=== PATIENT | female | born 1975 | race Asian ===

== ENCOUNTER → 2018-06-13 15:54 | Outpatient (CLI) | payer OTHER, SELFPAY ==
[2018-06-13 17:22] LABS: Free T4, Direct Thyroxine 1.14 ng/dL (0.78-2.19)
[2018-06-13 17:36] LABS: Thyroid Stimulating Hormone 1.89 uIU/mL (0.47-4.68)
== END ==
PROVIDERS: Family Provider Family Medicine; PCP Family Medicine; Visit Provider Obstetrics & Gynecology
DX: R53.83 Other fatigue (principal)
CPT/HCPCS: 36415; 84439; 84443

== ENCOUNTER → 2018-06-30 11:37 | Outpatient (CLI) | payer OTHER, SELFPAY ==
--- NOTE | 2018-06-30 11:39 | DI.MG.S_ITS ---
BILATERAL DIGITAL SCREENING MAMMOGRAM 3D/2D WITH CAD: 06/30/2018 CLINICAL: Routine screening. Baseline exam. No prior exams were available for comparison. The tissue of both breasts is heterogeneously dense. This may lower the sensitivity of mammography. Current study was also evaluated with a Computer Aided Detection (CAD) system. No significant masses, calcifications, or other findings are seen in either breast. IMPRESSION: NEGATIVE There is no mammographic evidence of malignancy. A 1 year screening mammogram is recommended. This exam was interpreted at Station ID: [id number]. NOTE: For mammograms, a report in lay terms will be sent to the patient. Approximately 15% of breast malignancies will not be visualized mammographically. In the management of a palpable breast mass, a negative mammogram must not discourage biopsy of a clinically suspicious lesion. Electronically Signed By: Briseida [email or web address]/beth:07/02/2018 16:07:35 letter sent: Normal Exam ACR BI-RADS Category 1: Negative 3341F
== END ==
PROVIDERS: Family Provider Family Medicine; PCP Family Medicine; Visit Provider Obstetrics & Gynecology
DX: Z12.31 Encounter for screening mammogram for malignant neoplasm of breast (principal)
CPT/HCPCS: 77063; 77067

== ENCOUNTER → 2019-05-01 15:42 | Outpatient (CLI) | payer OTHER, SELFPAY ==
[2019-05-02 15:34] LABS: Free T4, Direct Thyroxine 1.17 ng/dL (0.78-2.19)
[2019-05-02 15:48] LABS: Thyroid Stimulating Hormone 1.16 uIU/mL (0.47-4.68)
== END ==
PROVIDERS: Visit Provider Obstetrics & Gynecology
DX: E04.9 Nontoxic goiter, unspecified (principal)
CPT/HCPCS: 36415; 84439; 84443

== ENCOUNTER → 2021-01-07 14:10 | Outpatient (CLI) | payer BC, SELFPAY ==
[2021-01-07 16:37] LABS: Thyroid Stimulating Hormone 1.51 uIU/mL (0.47-4.68)
== END ==
PROVIDERS: Referring Provider Obstetrics & Gynecology; Visit Provider Obstetrics & Gynecology
DX: R53.83 Other fatigue (principal)
CPT/HCPCS: 36415; 84439; 84443

== ENCOUNTER 2022-12-14 21:12 | Emergency (ER) | payer BC, SELFPAY ==
[2022-12-14 21:15] VITALS: BP 128/71; PULSE 69; RESP 16; TEMP 36.2; O2SAT 100; BMI 21.4
[2022-12-14 21:49] LABS: Add Manual Diff / Slide Review NO; Basophils Absolute Auto 100 /uL (0-100); Basophils Percent Auto 1.2 % (0-2); Eosinophils Absolute Auto 500 /uL (0-450); Eosinophils Percent Auto 5.4 % (2-4); Hemoglobin 12.9 g/dL (12.0-16.0); Lymphocytes Absolute Auto 2700 /uL (1100-4500); Lymphocytes Percent Auto 32.4 % (25-40); Mean Corpuscular Hemoglobin 29.7 PG (26-34); Mean Corpuscular Volume 87.1 fL (80-100); Monocytes Absolute Auto 600 /uL (0-900); Monocytes Percent Auto 7.4 % (3-14); Neutrophils Absolute Auto 4500 /uL (1500-7000); Neutrophils Percent Auto 53.6 % (50-75); Platelet Count 260 X10^3/uL (150-400); Red Blood Cell Count 4.36 X10^6/uL (4.0-5.2); Red Cell Distribution Width 13.7 % (11.6-14.8); White Blood Cell Count 8.4 X10^3/uL (4.5-11.0)
--- NOTE | 2022-12-14 21:55 | ED.GIBLEED ---
HPI - GI Bleed General Chief complaint: GI Bleed Stated complaint: blood in stool Time Seen by Provider: 12/14/22 21:34 Source: patient Mode of arrival: Ambulatory History of Present Illness HPI Narrative: Otherwise healthy 46-year-old female who is here for evaluation of blood in her stool. She states that the event occurred just earlier today. She is also having some vaginal bleeding although she states this is abnormal as she is only [facility] through her menstrual cycle. She denies any abdominal pain except for some cramping related to the vaginal bleeding that she is having. States that it is not painful for her to have a bowel movement. She is not constipated. No diarrhea. No recent travel. No recent antibiotics. She is not had a colonoscopy in the past. Related Data Home Medications Medication Instructions Recorded Confirmed No Known Home Medications 06/13/18 02/17/21 Allergies Allergy/AdvReac Type Severity Reaction Status Date / Time adhesive [ADHESIVE] Allergy Severe RASH Verified 02/17/21 15:07 bacitracin Allergy Severe FACE Verified 02/17/21 15:07 [From NEOSPORIN SWELLING ([id number])] PAIN REDNESS neomycin Allergy Severe FACE Verified 02/17/21 15:07 [From NEOSPORIN SWELLING ([id number])] PAIN REDNESS polymyxin B Allergy Severe FACE Verified 02/17/21 15:07 [From NEOSPORIN SWELLING ([id number])] PAIN REDNESS cortisone [CORTISONE] AdvReac Severe RASH Verified 02/17/21 15:07 SWELLING PAIN Review of Systems Constitutional Constitutional: Reports system reviewed and no additional complaints, except as documented Gastrointestinal Gastrointestinal: Reports system reviewed and no additional complaints, except as documented Genitourinary Genitourinary: Reports system reviewed and no additional complaints, except as documented Musculoskeletal Musculoskeletal: Reports system reviewed and no additional complaints, except as documented Integumentary/Breasts Skin/Breast: Reports system reviewed and no additional complaints, except as documented Hematologic/Lymphatic On Anticoagulants: No Patient History Medical History Tendon injury (~2017) Surgical History (Updated 11/14/17 @ 05:35 by Conversion Provider) Status post delivery (05/17/05) Status post delivery (06/28/06) Status post delivery (08/16/11) Social History Smoking Status: Never smoker Smoking Status: Never smoker Substance Use Type: does not use Exam Initial Vital Signs Initial Vital Signs: Vital Signs Temperature 97.2 F L 12/14/22 21:15 Pulse Rate 69 12/14/22 21:15 Respiratory Rate 16 12/14/22 21:15 Blood Pressure 128/71 12/14/22 21:15 Pulse Oximetry 100 12/14/22 21:15 Oxygen Delivery Method Room Air 12/14/22 21:15 Const General: cooperative, comfortable and No ill appearing HENMT Head: normal to inspection and normocephalic Resp Effort & Inspection: normal respiratory effort Cardio Rate: regular rate GI Inspection: normal to inspection Palpation: soft, No firm and No tender Neuro General: patient alert, patient awake and moves all extremities Extrem General: capillary refill normal Course Orders Ordered: ED Orders 12/14/22 21:40 Complete Blood Count AUTO DIFF Stat Comprehensive Metabolic Panel Stat Type and Screen Stat Discontinued Medications Ondansetron HCl (Ondansetron 4 Mg/2 Ml Inj) 4 mg IV NOW PRN PRN Reason: Nausea And Vomiting Ondansetron HCl (Ondansetron 4 Mg Odt) 4 mg SL NOW PRN PRN Reason: Nausea And Vomiting Pantoprazole Sodium (Pantoprazole 40 Mg Vial) 80 mg IV NOW ONE Stop: 12/14/22 21:22 Last Admin: 12/14/22 22:04 Dose: Not Given Documented By: AW Vital Signs Vital signs: Vital Signs - 8 hr 12/14/22 21:15 12/14/22 22:09 12/14/22 22:12 Temperature 97.2 F L Pulse Rate 69 61 Respiratory Rate 16 Blood Pressure 128/71 112/65 Pulse Oximetry 100 95 Oxygen Delivery Method Room Air 12/14/22 22:12 12/14/22 22:38 12/14/22 22:40 Temperature Pulse Rate 61 Respiratory Rate 0 L Blood Pressure 120/56 L Pulse Oximetry 100 84 L Oxygen Delivery Method 12/14/22 22:40 12/14/22 23:00 12/14/22 23:00 Temperature Pulse Rate 71 61 Respiratory Rate 18 20 Blood Pressure 104/60 Pulse Oximetry 100 97 Oxygen Delivery Method MDM - GI Bleed Lab Data Attestation: I reviewed the patient's lab results. 12/14/22 21:40 12/14/22 21:40 Labs: Lab Results 12/14/22 12/14/22 12/14/22 Range/Units 21:40 21:40 21:40 WBC 8.4 (4.5-11.0) X10^3/uL RBC 4.36 (4.0-5.2) X10^6/uL Hgb 12.9 (12.0-16.0) g/dL Hct 38.0 (36-46) % MCV 87.1 (80-100) fL MCH 29.7 (26-34) PG MCHC 34.0 (30-36) % RDW 13.7 (11.6-14.8) % Plt Count 260 (150-400) X10^3/uL Neut % (Auto) 53.6 (50-75) % Lymph % (Auto) 32.4 (25-40) % [place]ison % (Auto) 7.4 (3-14) % Eos % (Auto) 5.4 H (2-4) % Baso % (Auto) 1.2 (0-2) % Neut # (Auto) 4500 (3926-3163) /uL Lymph # (Auto) 2700 (5817-4977) /uL Davison # (Auto) 600 (0-900) /uL Eos # (Auto) 500 H (0-450) /uL Baso # (Auto) 100 (0-100) /uL Sodium 136 L (137-145) mmol/L Potassium 3.6 (3.4-5.1) mmol/L Chloride 102 (98-107) mmol/L Carbon Dioxide 26 (22-32) mmol/L BUN 13 (7-17) mg/dL Creatinine 0.70 (0.52-1.04) mg/dL Estimated GFR > 60 (>60) mL/min BUN/Creatinine Ratio 18.6 (6-22) Glucose 101 H (70-100) mg/dL Calcium 9.4 (8.4-10.2) mg/dL Total Bilirubin 0.7 (0.2-1.3) mg/dL AST 26 (14-36) IU/L ALT 22 (<35) IU/L Alkaline Phosphatase 62 (38-126) U/L Total Protein 7.7 (6.3-8.2) g/dL Albumin 4.5 (3.5-5.0) g/dL Globulin 3.2 (1.7-4.1) g/dL Albumin/Globulin Ratio 1.4 (1.0-2.8) Blood Type B Positive Antibody Screen Negative Point of Care Testing Test Results Negative Urine Dip Bedside Urine Glucose Negative Bedside Urine Bilirubin - Negative Bedside Urine Ketone - Negative Urine Specific [place] 1.005 Bedside Urine Occult Blood +++ Bedside Urine pH 6.5 Bedside Urine Protein - Negative Bedside Urine Urobilinogen - Negative Bedside Urine Nitrite - Negative Bedside Urine Leukocytes - Negative Esterase MDM Narrative Medical decision making narrative: Labs unremarkable come exam is unremarkable, upon re-evaluation patient states she did have another bowel movement and this time there was no blood in it. She is having some abnormal vaginal bleeding [facility] through her menstrual cycle. test is negative. We will hold on further workup for now. I advised that she contact her primary doctor for follow-up to discuss indications for further evaluation into include a colonoscopy. No indication for any imaging studies here in the emergency department. She was given return precautions. She expressed understanding and agreement. Discharge Plan Departure Patient Disposition: Home Clinical Impression: Rectal bleeding Instructions: DI for Rectal Bleeding Activity Restrictions/Additional Instructions: Recommend that you continue to take all of your medications as directed. Also recommend that you contact your primary doctor for a follow-up to discuss the indications for a referral to have a colonoscopy. Return to the emergency department for new or worsening symptoms. Prescriptions: No Action No Known Home Medications Referrals: Meghan Forde MD [Primary Care Provider] - Stand Alone Forms: Patient Portal/API
[2022-12-14 21:56] LABS: Alanine Aminotransferase 22 IU/L (<35); Albumin 4.5 g/dL (3.5-5.0); Albumin Globulin Ratio 1.4 (1.0-2.8); Alkaline Phosphatase 62 U/L (38-126); Aspartate Aminotransferase 26 IU/L (14-36); BUN Creatinine Ratio 18.6 (6-22); Bilirubin Total 0.7 mg/dL (0.2-1.3); Blood Urea Nitrogen 13 mg/dL (7-17); Calcium 9.4 mg/dL (8.4-10.2); Carbon Dioxide 26 mmol/L (22-32); Chloride 102 mmol/L (98-107); Estimated Glomerular Filt Rate > 60 mL/min (>60); Globulin 3.2 g/dL (1.7-4.1); Glucose 101 mg/dL (70-100); HEMOLYSIS < 15 (0-50); Potassium 3.6 mmol/L (3.4-5.1); Sodium 136 mmol/L (137-145); Total Protein 7.7 g/dL (6.3-8.2)
[2022-12-14 22:09] VITALS: PULSE 61; O2SAT 95
[2022-12-14 22:12] VITALS: BP 112/65; PULSE 61; RESP 0; O2SAT 100
[2022-12-14 22:38] VITALS: O2SAT 84
[2022-12-14 22:40] VITALS: BP 120/56; PULSE 71; RESP 18; O2SAT 100
[2022-12-14 23:00] VITALS: BP 104/60; PULSE 61; RESP 20; O2SAT 97
== END 2022-12-14 23:09 | disposition home or self-care (01) ==
PROVIDERS: Emergency Provider Emergency Medicine; PCP Obstetrics & Gynecology
DX: K62.5 Hemorrhage of anus and rectum (principal); N93.9 Abnormal uterine and vaginal bleeding, unspecified
CPT/HCPCS: 36415; 80053; 81003; 81025; 85025; 86850; 86900; 86901; 99283; C9113